=== PATIENT | female | born 1960 | race Hispanic/Latino ===

== ENCOUNTER 2017-09-14 21:41 | Emergency (ER) | payer BC ==
[2017-09-14 21:41] VITALS: BMI 19.8
[2017-09-14] MEDS ORDERED: TDAP Vaccine 0.5 mL Syr IM ONE (22:17)
--- NOTE | 2017-09-14 22:17 | ED PDOC ---
Arrival/HPI - General Chief Complaint: Trauma Time Seen by Provider: 09/14/17 22:16 Historian: Patient - History of Present Illness Narrative History of Present Illness (Text): 09/14/17 22:17 This 57 yo female presents to this ED c/o left supraorbital laceration x [employer]. Patient stated she tripped and fell down after climbing a small pet's gate. Denies loc, BOYCE, diplopia, dizziness, weakness, paresthesias, or abnormal gait. Time/Duration: Other (see hpi) Context: Home Past Medical History - Provider Review Nursing Documentation Reviewed: Yes - Infectious Disease Hx of Infectious Diseases: None - Tetanus Immunization Tetanus Immunization: Unknown - Cardiac Hx Pacemaker: No - Neurological Hx Paralysis: No - Endocrine/Metabolic Hx Hypothyroidism: Yes - Hematological/Oncological Hx Blood Transfusions: No Hx Blood Transfusion Reaction: No - Musculoskeletal/Rheumatological Hx Musculoskeletal Disorders: No - Gastrointestinal Hx Gastroesophageal Reflux: Yes - Psychiatric Hx Emotional Abuse: No Hx Physical Abuse: No Hx Substance Use: No - Surgical History Hx Hysterectomy: Yes Hx Mastectomy: Yes - Anesthesia Hx Anesthesia Reactions: No Hx Malignant Hyperthermia: No - Suicidal Assessment Feels Threatened In Home Enviroment: No Family/Social History - Physician Review Nursing Documentation Reviewed: Yes Family/Social History: Other (noncontributory) Smoking Status: Never Smoked Hx Alcohol Use: No Hx Substance Use: No Hx Substance Use Treatment: No Allergies/Home Meds Allergies/Adverse Reactions: Allergies EGG Allergy (Severe, Verified 09/14/17 22:57) VOMITING Review of Systems - Review of Systems Constitutional: Normal. absent: Fatigue, Weight Change Eyes: Normal ENT: Normal Respiratory: Normal Cardiovascular: Normal Gastrointestinal: Normal Genitourinary Female: Normal Musculoskeletal: Normal Skin: Other (lef supra orbital hematoma with lacceration) Neurological: Normal Endocrine: Normal Hemo/Lymphatic: Normal Psychiatric: Normal Physical Exam Vital Signs Temp Pulse Resp BP Pulse Ox 09/14/17 22:12 98.3 F 72 18 131/93 H 97 Temperature: Afebrile Blood Pressure: Normal Pulse: Regular Respiratory Rate: Normal Appearance: Positive for: Well-Appearing, Non-Toxic, Comfortable Pain Distress: None Mental Status: Positive for: Alert and Oriented X 3 - Systems Exam Head: Present: Normocephalic, Ecchymosis (left supraorbital, approx 2 cm), Laceration ((+) left supraorbital laceration, approx. 2.8 cm), Other (no raccoon sign. No hyatt sign). No: Tenderness, Contusion, Swelling Pupils: Present: PERRL, Other (no hyphema) Extroacular Muscles: Present: EOMI. No: Entrapment Conjunctiva: Present: Normal Ears: Present: Normal, Other (no hemotympanum) Mouth: Present: Moist Mucous Membranes, Normal Lips, Normal Tounge, Normal Teeth. No: Drooling Pharnyx: Present: Normal. No: ERYTHEMA, EXUDATE, TONSILS ENLARGED Nose (External): Present: Atraumatic Nose (Internal): Present: Normal Inspection Neck: Present: Normal Range of Motion, Trachea Midline. No: Meningeal Signs, MIDLINE TENDERNESS, Paraspinal Tenderness Respiratory/Chest: Present: Clear to Auscultation, Good Air Exchange, Respiratory Distress, Accessory Muscle Use. No: Wheezes, Decreased Breath Sounds, Rales, Retracting, Rhonchi, Tachypneic Cardiovascular: Present: Regular Rate and Rhythm, Normal S1, S2. No: Murmurs Abdomen: No: Tenderness Upper Extremity: Present: Normal Inspection, Normal ROM Lower Extremity: Present: Normal Inspection, Normal ROM Neurological: Present: GCS=15, CN II-XII Intact, Speech Normal, Motor Func Grossly Intact, Normal Sensory Function, Normal Cerebellar Funct Skin: Present: Warm, Dry, Normal Color. No: Rashes Psychiatric: Present: Alert, Oriented x 3, Normal Insight, Normal Concentration Medical Decision Making ED Course and Treatment: 09/14/17 23:08 Patient came to ED for facial laceration repair. Patient stated she had a mechanical fall. Patient stated she did not hit her head hard, but she caught the edge of steps which caused laceration. Patient is not taking blood thinner. Patient denies BOYCE, diplopia, dysarthria, abnormal gait, nausea, or vomiting. Patient denies other somatic complains. Patient does not wish to have a CT scan of the head since she is asymptomatic. Re-evaluation. Patient feels better. Discussed results and plan with patient who expresses understanding. All questions answered and there is agreement with the plan to discharge home with instructions. Patient stable for discharge. Return if symptoms persist or worsen. Re-evaluation Time: 23:08 Reassessment Condition: Re-examined, Improved - Medication Orders Current Medication Orders: Discontinued Medications Cephalexin Monohydrate (Keflex) 500 mg PO STAT STA PRN Reason: Protocol Stop: 09/14/17 23:15 Last Admin: 09/14/17 23:22 Dose: 500 mg Tetanus/Reduced Diphtheria/Acell Pertussis (Boostrix Vaccine Inj) 0.5 ml IM .ONCE ONE Stop: 09/14/17 22:18 Last Admin: 09/14/17 23:21 Dose: 0.5 ml - Procedure PROCEDURE NOTE (Text): 09/14/17 23:08 PROCEDURE: LACERATION REPAIR Performed by the emergency provider Location: left supraorbital Length: 2.8 cm Description: clean wound edges, no foreign bodies Distal CMS: Normal. No deficits. Neurovascularly intact. Anesthesia: Lidocaine 1% without Epi., approx. 1 cc Preparation: The wound was cleaned with NS and Betadyne. The area was prepped and draped in the usual sterile fashion.Exploration: The wound was explored and no foreign bodies were found. Procedure: The wound was closed with 6-0 Vicryl, interrupted, single layer. There was good approximation. In total, 3 sutures were used. Post-Procedure: Good closure and hemostasis. The patient tolerated the procedure well and there were no complications. CSM remains intact. Post procedure dressing applied. Disposition/Present on Arrival - Present on Arrival Any Indicators Present on Arrival: No History of DVT/PE: No History of Uncontrolled Diabetes: No Urinary Catheter: No History of Decub. Ulcer: No History Surgical Site Infection Following: None - Disposition Have Diagnosis and Disposition been Completed?: Yes Diagnosis: Facial laceration Disposition: HOME/ ROUTINE Disposition Time: 23:11 Patient Plan: Discharge Condition: IMPROVED Discharge Instructions (ExitCare): Laceration Repair Additional Instructions: Call private doctor for follow up visit in 1-2 days. Keep wound clean and dry for 2 days, then clean wound with soap and water daily. You may need to apply Mederma cream to decrease scar in 2 weeks. Return to emergency if wound becomes infected. return to emergency if you experience nausea, vomiting, dizziness, headaches, abnormal walk Prescriptions: Cephalexin [cephalexin] 500 mg PO QID #20 cap Referrals: Tutu Bryan MD [Primary Care Provider] - Follow up with primary Forms: [employer] ([place]ian), WORK NOTE
[2017-09-14 22:22] VITALS: BP 131/93; PULSE 72; RESP 18; TEMP 98.3; O2SAT 97
[2017-09-14] MEDS ORDERED: Lidocaine 1% Inj (20ml) ONE (22:32)
== END 2017-09-14 23:27 | disposition home or self-care (01) ==
LOC: ED 21:41
DX: S01.81XA Laceration without foreign body of other part of head, initial encounter (principal); W01.0XXA Fall on same level from slipping, tripping and stumbling without subsequent striking against object, initial encounter; Z23 Encounter for immunization; E03.9 Hypothyroidism, unspecified